=== PATIENT | female | born 1955 ===

== ENCOUNTER 2018-08-25 08:17 | Day surgery (SDC) | payer BC ==
[2018-08-25] MEDS ORDERED: Lactated Ringer's 500 ML IV ONE (08:40)
[2018-08-25 08:41] VITALS: BMI 25.4
[2018-08-25 08:48] VITALS: O2SAT 100
[2018-08-25] MEDS ORDERED: Propofol 10 mg/ml Inj (20 ML) ONE ×2 (10:16→10:23)
[2018-08-25 11:32] VITALS: BP 120/77; PULSE 67; RESP 18; TEMP 97
== END 2018-08-25 12:09 | disposition home or self-care (01) ==
LOC: H.ENDO 08:17
PROVIDERS: ATTEND Internal Medicine Gastroenterology
DX: D50.9 Iron deficiency anemia, unspecified (principal); K64.8 Other hemorrhoids; K29.50 Unspecified chronic gastritis without bleeding; K31.89 Other diseases of stomach and duodenum
CPT/HCPCS: 43239; 45378; 88305; 88342; J2704; J7120